=== PATIENT | male | born 1995 | race Caucasian/White ===

== ENCOUNTER 2023-02-08 19:20 | Emergency (ER) | payer OTHER ==
[2023-02-08 19:29] VITALS: BP 131/85; PULSE 82; RESP 16; TEMP 98.5; BMI 24.3
[2023-02-08] MEDS ORDERED: NAPROXEN 500 MG TABLET PO ONE (21:05)
[2023-02-08] MEDS ORDERED: NAPROXEN 500 MG TABLET ONE (21:08)
== END 2023-02-08 21:33 | disposition home or self-care (01) ==
LOC: FER 19:20
DX: R07.81 Pleurodynia (principal); V49.9XXA Car occupant (driver) (passenger) injured in unspecified traffic accident, initial encounter
CPT/HCPCS: 71046-TC-FY; 71101-TC-RT-FY; 99283-25